=== PATIENT | male | born 1980 | race Caucasian/White ===

== ENCOUNTER 2016-08-30 08:30 | Outpatient (CLI) | payer OTHER ==
[2016-09-06 14:30] LABS: Routine O & P Final report (.)
== END 2016-08-30 08:31 | disposition home or self-care (01) ==
LOC: MADLAB 08:30
PROVIDERS: ATTEND Internal Medicine Gastroenterology
DX: R10.0 Acute abdomen (principal); R19.7 Diarrhea, unspecified
CPT/HCPCS: 36415; 83630; 87015; 87045; 87046; 87177; 87324; 87449; 87899

== ENCOUNTER 2020-05-31 17:26 | Emergency (ER) | payer OTHER, SELFPAY ==
--- NOTE | 2020-05-31 18:10 | CT ---
Head CT without contrast 05/31/2020: Comparison: None HISTORY: Trauma, blood in the right external auditory canal TECHNIQUE: Axial CT imaging at 5 mm intervals from vertex through skull base without contrast FINDINGS: The visualized paranasal sinuses appear grossly unremarkable. There are a few opacified mastoid air cells on the right. No displaced calvarial fracture. There is s calp swelling laterally within the frontoparietal region with foci of soft tissue gas consistent with laceration seen on axial image 22. No intracranial hemorrhage, midline shift, or mass effect. IMPRESSION: No intracranial hemorrhage or displaced calvarial fracture. Soft tissue swelling and evid ence of scalp laceration on the right. There are a few opacified mastoid air cells on the right. Follow-up CT examination of the temporal bones may be beneficial if there is clinical concern for a t emporal bone fracture.
--- NOTE | 2020-05-31 18:11 | CT ---
CT CERVICAL SPINE NONCONTRAST: DATE: 05/31/2020 HISTORY: cervical trauma. 40-year-old male. FINDINGS: There are no jumped or perched facets. There is no evidence of acute fracture. The vertebral body hei ghts are maintained. There is no prevertebral soft tissue swelling. IMPRESSION: No evidence of acute fracture or acute traumatic subluxation.
--- NOTE | 2020-05-31 19:10 | CT ---
CT of theorbits: 05/31/2020 COMPARISON:None available HISTORY:Blood in the right ear canal, evaluate the temporal bones TECHNIQUE: Serial axial CT imaging at2.5 mm intervals through the orbits/temporal bones without contr ast. Coronal and sagittal reformatted imaging obtained. FINDINGS: Evaluation for a temporal bone fracture is suboptimal on this examination secondary to the thickness of the provided CT slices. The frontal sinuses, the sphenoid sinuses, and the maxillary sinuses appear grossly unremarkable. There is mild mucosal thickening of the anterior ethmoid air elier ls on the right. There are a few opacified mastoid air cells on the right. On axial image 20 there is a horizontal lucency in the region of the temporal bone just lateral to the right tympanic cavity which is suspicious for a nondisplaced fracture. The ossicles and contents of the tympanic cavity are not well assessed on this exam. There is scalp swelling lateral to the right parietal and temporal bone with a few foci of gas within the subcutaneous fat in the right parietal region suggesting laceration. The external auditory canal on the right contains debris/blood. Neither temporomandibular joint appea rs dislocated IMPRESSION: Technically limited assessment of the temporal bone secondary to technique used for this exam. There are findings suspicious for a nondisplaced horizontal temporal bone fracture on the right which may extend into the region of the tympanic cavity. Recommend a dedicated CT of the tempor al bones with thin cuts and follow-up ENT consultation.
[2020-05-31] MEDS ORDERED: Boostrix 0.5 ML (Tdap) VIAL ONE (19:31)
[2020-05-31] MEDS ORDERED: HYDROcodone/Acetaminophen 5/325 mg Tablet ONE (20:27)
== END 2020-05-31 19:13 | disposition home or self-care (01) ==
LOC: MADERS 17:26
DX: S02.19XA Other fracture of base of skull, initial encounter for closed fracture (principal); Z23 Encounter for immunization; F17.220 Nicotine dependence, chewing tobacco, uncomplicated; V87.8XXA Person injured in other specified noncollision transport accidents involving motor vehicle (traffic), initial encounter
CPT/HCPCS: 70450; 70486; 72125; 90471; 90715